=== PATIENT | female | born 1980 | race American Indian/Alaskan Native ===

== ENCOUNTER 2016-05-27 12:10 | Inpatient (IN) | payer MEDICARE ==
--- NOTE | 2016-05-27 12:50 | Emergency Department Report ---
Chief Complaint: Dizziness Stated Complaint: PAIN IN BOTH SHOULDERS Time Seen by Provider: 05/27/16 12:42 - HPI History of Present Illness: 36-year-old female with end-stage renal disease. Patient reports that she does home dialysis 5 times a week. Patient reports the last few days she's not been able to gather access to her shot. She reported yesterday when she tried to stick herself blood shot out from another opening of her shunt. She reports that this appears to be not functioning as it should places her cell phone machine and does not clear her. She was sent here by her doctor, Dr. Tatum and vascular to be evaluated. Patient reports that she has been having more dizziness when she gets on the machine she reported that her blood pressure was 85/69 which she placed herself on the machine yesterday. At that time she was complaining of heart with racing dizziness nausea and vomiting. Patient denies any fever or chills at this time. - Exam Vital Signs: Vital Signs 05/27/16 12:14 Temperature 98.3 F Pulse Rate 130 H Blood Pressure 143/111 O2 Sat by Pulse 98 Oximetry Physical Exam: Patient's alert and oriented 3. Cardiovascular S1-S2 tachycardic respiratory clear to auscultation extremities no edema noted. Noted a right upper arm shunt. MSE screening note: Focused history and physical exam performed. Due to findings the following was ordered: CBC CMP PT PTT and ultrasound of her right upper extremity to be evaluated in the main ER ED Disposition for MSE Condition: Stable
[2016-05-27 13:29] LABS: Basophils % (Auto) 1.1 % (0.0-1.8); Eosinophils % (Auto) 1.6 % (0.0-4.3); Hematocrit 47.7 % (30.3-42.9); Hemoglobin 15.1 gm/dl (10.1-14.3); Mean Corpuscular HGB Conc 32 % (30-34); Mean Corpuscular Hemoglobin 34 pg (28-32); Mean Corpuscular Volume 107 fl (79-97); Platelet Count 229 K/mm3 (140-440); Red Blood Count 4.47 M/mm3 (3.65-5.03); Red Cell Distribution Width 17.3 % (13.2-15.2)
[2016-05-27 13:43] LABS: INR 1.08 (0.87-1.13)
[2016-05-27 13:44] LABS: Partial Thromboplastin Time 25.8 Sec. (24.2-36.6)
[2016-05-27 13:45] LABS: BUN/Creatinine Ratio 3.09; Bilirubin,Total 0.5 mg/dL (0.1-1.2); Calcium 9.4 mg/dL (8.4-10.2); Potassium 4.6 mmol/L (3.6-5.0); Total Protein 8.1 g/dL (6.3-8.2)
[2016-05-27 13:46] LABS: Chloride 92.4 mmol/L (98-107)
--- NOTE | 2016-05-27 17:22 | Vascular Lab Report ---
FISTULA DUPLEX EXAM: REASON FOR EXAM: AVF malfunction with ESRD. NOTE: THE FISTULA IS LOCATED IN THE right UPPER EXTREMITY. COMMENTS ON THE FISTULA: This is a brachial artery inflow to cephalic vein outlflow fistula. Morphologicaly, there is no large pseudoaneurysms. There is no velocity gradient to suggest focal stenosis. COMMENTS ON THE INFLOW: The inflow velocity is 144 cm/s which is adequate. The brachial artery is 308 cm/sec which is elevated. COMMENTS ON THE OUTFLOW: The venous outflow is 84 cm/s which is low. The volume is 708-1093 mL per minute mL/min which is adequate. IMPRESSION: No evidence of focal stenosis. The volume passing through the fistula is adequate. Low velocity observed in the fistula may result from brachial artery stenosis elevated velocity. Clinical correlation recommended.
[2016-05-27] MEDS ORDERED: NACL 0.9% 500 ML 500 ML IV ONE (19:15)
--- NOTE | 2016-05-27 19:30 | Emergency Department Report ---
ED General Adult HPI - General Chief complaint: Dizziness Stated complaint: PAIN IN BOTH SHOULDERS Time Seen by Provider: 05/27/16 12:42 Source: patient Mode of arrival: Wheelchair Limitations: No Limitations - History of Present Illness Initial comments: Patient is a 36-year-old female with history of end-stage renal disease on hemodialysis at home as well as SLE presented today because she was found to have a low BP of 85/79 and a heart rate of [address] Tatum ( vascular doctor). Patient here has a heart rate of 20 and a blood pressure 118/ 68. She states that she's been having a heart rate and blood pressure abnormalities such as this for over a month and she is seen her primary doctor who has ordered an outpatient CTA. CTA results are in the computer and show small effusions but no PE. She states she's also had a cough the last 2 months been improving. Denies any other specific complaints. - Related Data Home Medications Medication Instructions Recorded Confirmed Last Taken Cinacalcet [Sensipar] 30 mg PO QDAY 11/12/14 05/27/16 04/13/15 Cyclobenzaprine HCl [Flexeril 5 MG 10 mg PO TID 11/12/14 05/27/16 04/13/15 TAB] Sevelamer Carbonate [Renvela] 4 tab PO TIDWM 04/14/15 05/27/16 04/13/15 Hydroxychloroquine [Plaquenil] 100 mg PO QDAY 05/27/16 05/27/16 Unknown fentaNYL [Duragesic 12mcg] 1 each TD Q72HR 05/27/16 05/27/16 Unknown Allergies Allergy/AdvReac Type Severity Reaction Status Date / Time Penicillins Allergy Itching Verified 04/14/15 15:34 ED Review of Systems ROS: Stated complaint: PAIN IN BOTH SHOULDERS Other details as noted in HPI Comment: All other systems reviewed and negative Constitutional: denies: diaphoresis, weakness Respiratory: cough, SOB with exertion, SOB at rest Cardiovascular: denies: chest pain Gastrointestinal: denies: abdominal pain, vomiting Skin: denies: rash Neurological: denies: headache Psychiatric: denies: anxiety ED Past Medical Hx - Past Medical History Hx Hypertension: (states no longer needs/takes meds) Hx Congestive Heart Failure: No Hx Diabetes: No Hx Liver Disease: No Hx Renal Disease: Yes (DIALYSIS DAILY at home) Hx Sickle Cell Disease: No Hx Arthritis: Yes Hx Seizures: No Hx Asthma: No Hx COPD: No Hx HIV: No Additional medical history: lupus - Surgical History Hx Open Heart Surgery: Yes (mitral valve replacement) Hx Pacemaker: No Hx Internal Defibrillator: No Additional Surgical History: Tubal ligation. Permacath RIGHT CHEST(REMOVED 07/01 ) - Social History Smoking Status: Never Smoker Substance Use Type: None - Medications Home Medications: Home Medications Medication Instructions Recorded Confirmed Last Taken Type Cinacalcet [Sensipar] 30 mg PO QDAY 11/12/14 05/27/16 04/13/15 History Cyclobenzaprine HCl [Flexeril 5 MG 10 mg PO TID 11/12/14 05/27/16 04/13/15 History TAB] Sevelamer Carbonate [Renvela] 4 tab PO TIDWM 04/14/15 05/27/16 04/13/15 History Hydroxychloroquine [Plaquenil] 100 mg PO QDAY 05/27/16 05/27/16 Unknown History fentaNYL [Duragesic 12mcg] 1 each TD Q72HR 05/27/16 05/27/16 Unknown History ED Physical Exam - General Limitations: No Limitations General appearance: alert, in no apparent distress - Head Head exam: Present: atraumatic - Eye Eye exam: Present: normal appearance - ENT ENT exam: Present: normal exam - Respiratory Respiratory exam: Present: normal lung sounds bilaterally, other (limited exam due to body habitus). Absent: respiratory distress - Cardiovascular Cardiovascular Exam: Present: normal heart sounds, other (regular rhythm tachycardic) - GI/Abdominal GI/Abdominal exam: Present: soft - Extremities Exam Extremities exam: Present: normal capillary refill, other (right upper extremity fistula with palpable and audible thrill) - Psychiatric Psychiatric exam: Present: normal affect - Skin Skin exam: Absent: rash ED Course Vital Signs 05/27/16 05/27/16 05/27/16 12:14 17:03 17:12 Temperature 98.3 F Pulse Rate 130 H 109 H Respiratory 24 23 Rate Blood Pressure 143/111 O2 Sat by Pulse 98 98 Oximetry 05/27/16 05/27/16 05/27/16 18:00 19:00 20:00 Temperature Pulse Rate 120 H 118 H 120 H Respiratory 19 19 15 Rate Blood Pressure 100/52 114/69 96/59 O2 Sat by Pulse 97 98 100 Oximetry 05/27/16 05/27/16 21:00 22:00 Temperature Pulse Rate 120 H 122 H Respiratory 31 H 17 Rate Blood Pressure 105/60 105/56 O2 Sat by Pulse 99 99 Oximetry ED Medical Decision Making - Lab Data Result diagrams: 05/27/16 13:05 05/27/16 13:05 - EKG Data EKG shows normal: sinus rhythm Rate: tachycardia - EKG Data When compared to previous EKG there are: no significant change - Medical Decision Making She was found to have a exam is mostly remarkable for a explained tachycardia. She has been having a cough which is not clearly explained by any reason. Chest x-ray and EKG ordered. Chest x-ray shows left heart border is not clear on my prior chest x-ray, she may represent a new infiltrate. Labs also show leukocytosis. In the setting of her having cough, shortness of breath and tachycardia will have to assume that this is due to pneumonia. Will order HCAP abx. Indigo to admit the patient given her multiple comorbidities and her abnormal vital signs tachycardia as well as harry has difficulty in completing dialysis at home. Spoke to Dr. Darlyn Modi, Hospitalist, will admit the patient. Critical care attestation.: If time is entered above; I have spent that time in minutes in the direct care of this critically ill patient, excluding procedure time. ED Disposition Clinical Impression: Pneumonia Qualifiers: Pneumonia type: due to unspecified organism Laterality: left Lung location: lower lobe of lung Qualified Code(s): J18.9 - Pneumonia, unspecified organism Disposition: OP ADMITTED IP TO THIS HOSP Is pt being admited?: Yes Does the pt Need Aspirin: No Condition: Stable Time of Disposition: 21:24 (Hospitalist admitting)
[2016-05-27] MEDS ORDERED: VANCOMYCIN VIAL IV ONE (20:12)
[2016-05-27] MEDS ORDERED: VANCOMYCIN PHARMACY TO DOSE IV SCH (21:00)
[2016-05-27] MEDS ORDERED: VANCOMYCIN VIAL 2,000 MG in NACL 0.9% 500 ML 500 ML IV ONE (21:00)
[2016-05-27] MEDS ORDERED: MAXIPIME/NS 2 GM/100 ML 100 ML IV ONE (22:00)
--- NOTE | 2016-05-27 22:11 | XRay Report ---
FINAL REPORT EXAM: XR CHEST 1V AP HISTORY: tachycardic TECHNIQUE: upright single view chest PRIORS: None. FINDINGS: Sternotomy wires are present. There is cardiac valve prosthesis. Left heart border is indistinct. No focal pulmonary infiltrate is identified. No pleural fluid collection seen. Pulmonary vasculature is unremarkable. IMPRESSION: Evidence for prior cardiac surgery with valve prosthesis No acute pulmonary findings
--- NOTE | 2016-05-27 22:39 | History and Physical Report ---
History of Present Illness Date of examination: 05/27/16 History of present illness: 36 year woman with history of lupus, ESRD, valve placement, anemia was sent to the emergency room for evaluation of tachycardia. She also states that her blood pressure was 85 systolically. She states she has been having palpitations for 2 months, she was evaluated by cardiology. She has a CT chest which was negative for PE, an echo was done, she does not know the results. Palpitations are intermittent, every 5 minutes. Today she felt dizzy and nauseous. No chest pain Patient denies chest pain, shortness of breath, cough, abdominal pain, hematochezia, dysuria, frequency, focal weakness, dysarthria, fever chills, polydipsia polyuria, hot or cold intolerance, easy bruisability, or rash or bleeding from mucosal membrane, rhinorrhea, epistaxis, earache, tinnitus, blurry vision, eye discharge, anxiety, depression. Other review of systems negative PAST SURGICAL HISTORY: AV fistula, tubal ligation, however placement SOCIAL HISTORY: Denies alcohol, tobacco, drugs FAMILY HISTORY: Hypertension Medications and Allergies Allergies Allergy/AdvReac Type Severity Reaction Status Date / Time Penicillins Allergy Itching Verified 04/14/15 15:34 Home Medications Medication Instructions Recorded Confirmed Last Taken Type Cinacalcet [Sensipar] 30 mg PO QDAY 11/12/14 05/27/16 04/13/15 History Cyclobenzaprine HCl [Flexeril 5 MG 10 mg PO TID 11/12/14 05/27/16 04/13/15 History TAB] Sevelamer Carbonate [Renvela] 4 tab PO TIDWM 04/14/15 05/27/16 04/13/15 History Hydroxychloroquine [Plaquenil] 100 mg PO QDAY 05/27/16 05/27/16 Unknown History fentaNYL [Duragesic 12mcg] 1 each TD Q72HR 05/27/16 05/27/16 Unknown History Active Meds: Active Medications Vancomycin HCl 2,000 mg/ (Sodium Chloride) 500 mls @ 250 mls/hr IV ONCE.ED ONE Stop: 05/27/16 22:59 Vancomycin HCl (Vancomycin Pharmacy To Dose) 1 each IV PKCONSULT SHAYLA PRN Reason: Protocol Exam - Physical Exam Narrative exam: Gen. appearance: Patient lying in bed, no apparent distress HEENT: Normocephalic, atraumatic, pupils equally round and reactive to light, extraocular movement intact, and no sclericterus,. No JVD or thyromegaly or nodule,neck supple, no carotid bruit ,mucous membranes moist, no exudate or erythema Heart: S1, S2, regular rate and rhythm Lungs: Clear to auscultation bilaterally, breathing comfortable Abdomen: Positive bowel sounds, nontender, nondistended, no organomegaly Extremity: No edema, cyanosis, clubbing Skin: No rash, nodules, warm, dry Neuro: Oriented 3, cranial nerves II-12 intact, speech is fluent, motor and sensory intact - Constitutional Vitals: Temp Pulse Resp BP Pulse Ox 98.3 F 122 H 17 105/56 99 05/27/16 12:14 05/27/16 22:00 05/27/16 22:00 05/27/16 22:00 05/27/16 22:00 Results - Labs CBC & Chem 7: 05/27/16 13:05 05/27/16 13:05 Labs: Abnormal lab results 05/27/16 05/27/16 05/27/16 Range/Units 13:05 13:05 19:51 WBC 12.0 H (4.5-11.0) K/mm3 Hgb 15.1 H (10.1-14.3) gm/dl Hct 47.7 H (30.3-42.9) % MCV 107 H (79-97) fl MCH 34 H (28-32) pg RDW 17.3 H (13.2-15.2) % Lymph % (Auto) 10.0 L (13.4-35.0) % Seg Neutrophils % 80.7 H (40.0-70.0) % Seg Neutrophils # 9.7 H (1.8-7.7) K/mm3 Chloride 92.4 L (98-107) mmol/L BUN 43 H (7-17) mg/dL Creatinine 13.9 H (0.7-1.2) mg/dL Glucose 133 H (65-100) mg/dL TSH 7.820 H (0.270-4.200) mlU/mL - Imaging and Cardiology EKG: image reviewed Chest x-ray: report reviewed Assessment and Plan Palpitations/Tachycardia ESRD on dialysis Lupus H/o Valve replacement Admit to medicine Check cardiac enzymes, d-dimer Consult cardiology, get recent echo report Start IV fluid, dvt prophalaxis, out patient medications No signs of infection, s/p antibiotic with vanco and cefipime CT chest reviewed from May 14
[2016-05-27] MEDS ORDERED: NACL 0.9% 1000 ML 1,000 ML IV SCH (23:00)
[2016-05-27] MEDS ORDERED: DULCOLAX PR PRN (23:03)
[2016-05-27] MEDS ORDERED: ZOFRAN IV PRN (23:03)
[2016-05-27] MEDS ORDERED: TYLENOL PO PRN (23:03)
[2016-05-27] MEDS ORDERED: MILK OF MAGNESIA PO PRN (23:03)
[2016-05-28 00:28] LABS: Creatine Kinase 57 units/L (30-135)
[2016-05-28 00:35] LABS: Creatine Kinase MB < 1.0 ng/mL (0.0-4.0)
--- NOTE | 2016-05-28 01:04 | Admit Criteria Form ---
Admission Criteria Documentation: CARDIOLOGY GRG Clinical Indications for Admission to Inpatient Care ( Place 'X' for any and all applicable criteria): Hospital admission is needed for appropriate care of the patient because of ANY ONE of the following (1): [ ] I. Hemodynamic instability as indicated by ALL of the following (1)(2)(3) (4)(5) [ ]a) Vital signs or other findings not as expected for chronic patient condition or baseline [ ]b) Instability indicated by ANY ONE of the following: [ ]i) Hypotension [ ]ii) Symptomatic Tachycardia unresponsive to treatment ( e.g., analgesia, fluids, sedation as indicated) [ ]iii) Inadequate perfusion indicated by ANY ONE of the following: [ ] 1) Lactic acidosis (> 2 mmol/L) [ ] 2) New abnormal capillary refill (> 3 seconds) [ ] 3) Reduced urine output [ ] 4) New altered mental status [ ]iv) Orthostatic vital sign changes unresponsive to treatment (e.g., fluids) [ ]v) IV inotropic or vasopressor medication required to maintain adequate blood pressure or perfusion [ ] II. Severe heart failure as indicated by ANY ONE of the following(17)(18) [ ]a) Respiratory distress [ ]b) Hypotension [ ]c) Anasarca (refractory to outpatient therapy) [ ]d) Cardiac arrhythmias of immediate concern [ ]e) Myocardial ischemia [ ] III. Cardiac arrhythmias or findings of immediate concern indicated by ANY ONE of the following (19)(20): [ ] a) Heart rhythms that are inherently dangerous or unstable indicated by ANY ONE of the following (21)(22)(23): [ ] i) Resuscitated ventricular fibrillation or cardiac arrest [ ] ii) Ventricular escape rhythm [ ] iii) Sustained ventricular tachycardia (30 seconds or more of ventricular rhythm at greater than 100 beats per minute) [ ] iv) Nonsustained ventricular tachycardia and ANY ONE of the following: [ ] 1) Suspected cardiac ischemia as cause or consequence of ventricular tachycardia [ ] 2) In setting of acute myocarditis [ ] b) Unstable cardiac conduction defects indicated by ANY ONE of the following(23)(24)(25) [ ] i) Type II second-degree atrioventricular block [ ]ii) Third-degree atrioventricular block [ ]iii) New-onset left bundle branch block with suspected myocardial ischemia [ ]c) Any heart rhythm and ANY ONE of the following (21)(22)(26)(27) (28) [ ] i) Continuous long-term ECG monitoring needed (e.g., initiation of drug requiring monitoring for more than 24 hours) [ ] ii) Patient has automatic implanted cardioverter defibrillator that is repeatedly firing, malfunctioning, or in need of immediate adjustment of settings beyond the scope of ambulatory or observation care [ ]d) Heart rhythms of concern due to ANY ONE of the following: [ ] i) Hypotension [ ] ii) Respiratory distress [ ] iii) Association with other significant symptoms (e.g., bradycardia with syncope or ongoing dizziness, supraventricular tachycardia with chest pain (14)(15)(17) [ ] IV. Monitoring for cardiac contusion beyond the scope of observation care needed [A](30)(31)(32) [ ] V. Surgical or device complication (e.g., valve replacement complication , pacemaker dysfunction) (35)(41)(44)(45)(46) [ ] . Inpatient palliative care needed. [B](49) Also use Inpatient Palliative Care Criteria [ ] VII. Nonbacterial thrombotic (marantic) endocarditis (36)(43)(47)(48) [X ] VIII. Cardiology condition, symptom, or finding for which emergency and observation care has failed or are not considered appropriate. [ ] IX. Acute valvular disease requiring inpatient as indicated by ANY ONE of the following (41) [ ]a) Acute valvular regurgitation (42) [ ]b) Noninfectious valvulitis (43) [ ]c) Obstructive valve thrombosis [ ]d) Paravalvular leak [ ]e) Other significant valvular disorder remaining after emergency or observation level of care (as appropriate) [ ]X. Pericardial disease requiring inpatient treatment as indicated by ANY ONE of the following (33)(34)(35)(36)(37) [ ]a) Suspected tamponade (38)(39)(40) [ ]b) Hemopericardium [ ]c) Other significant pericardial disorder remaining after emergency or observation level of care (as appropriate) [ ] XI. Cardiac ischemia beyond scope of emergency and observation care. [ ] XII. Hypertension requiring inpatient treatment as indicated by ANY ONE of the following (6)(7)(8) [ ]a) SBP greater than 220 mm Hg or DBP greater than 120 mmHg despite treatment [ ]b) SBP greater than 140 mm Hg or DBP greater than 100 mm Hg with evidence of acute end organ damage as indicated by ANY ONE of the following [ ] i) Altered mental status [ ] ii) Acute renal failure as indicated by new onset of ANY ONE of the following (9)(10)(11)(12)(13) [ ]1) 3-fold rise in serum creatinine from baseline [ ]2) Serum creatinine greater than 4 mg/dL ( 354 micromoles/L) with acute rise greater than 0.5 mg/dL (44.2 micromoles/L) [ ]3) Reduction of more than 75% in estimated glomerular filtration rate from baseline [ ]4) Estimated glomerular filtration rate less than 35 mL/min/1.73m2 (0.59 mL/sec/1.73m2) in child up to 18 years of age [ ]5) Cessation of urine output indicated by ALL of the following [ ]A. Adequate volume status [ ]B. Inadequate urine output as indicated by ANY ONE of the following [ ]a. Urine output less than 0.3 mL/kg/hr for 24 hours [ ]b. Anuria (urine output less than 0.1 mL/kg/hr) for 12 hours [ ] iii) Aortic dissection [ ] iv) Myocardial Ischemia [ ] v) Left ventricular heart failure [ ]vi) Retinal Hemorrhage [ ]vii) Other significant finding [ ]c) Hypertension in child requiring inpatient treatment as indicated by ALL of the following(14)(15)(16) [ ] i) Outpatient treatment not effective, not available, or not appropriate [ ]ii) SBP or DBP greater than 95th percentile for age [ ]iii) Evidence of acute end organ damage as indicated by ANY ONE of the following [ ]1) Altered mental status [ ]2) Acute renal failure as indicated by new onset of ANY ONE of the following(9)(10)(11)(12)(13) [ ]A. 3-fold rise in serum creatinine from baseline [ ]B. Serum creatinine greater than 4 mg/dL (354 micromoles/L) with acute rise greater than 0.5 mg/dL (44.2 micromoles/L) [ ]C. Reduction of more than 75% in estimated glomerular filtration rate from baseline [ ]D. Estimated glomerular filtration rate less than 35 mL/min/1.73m2 (0.59 mL/sec/1.73m2) in child up to 18 years of age [ ]E. Cessation of urine output indicated by ALL of the following [ ]a. Adequate volume status [ ]b. Inadequate urine output as indicated by ANY ONE of the following [ ]i) Urine output less than 0.3 mL/kg/hr for 24 hours [ ]ii) Anuria ( urine output less than 0.1 mL/kg/hr) for 12 hours [ ]3) Severe headache [ ]4) Visual disturbance [ ]5) Retinal hemorrhage [ ]6) Other significant finding [ ]XIII. Complications of transplanted heart indicated by ANY ONE of the following(61): [ ]a) Acute graft rejection requiring inpatient management (eg, intravenous immunosuppression)(62)(63) [ ]b) Acute graft heart failure indicated by ANY ONE of the following(64): [ ]i) Hemodynamic instability [ ]ii) Cardiac arrhythmias of immediate concern [ ]iii) Pulmonary edema that is very severe (eg, mechanical ventilation needed, imminent or likely, need for 100% oxygen to keep oxygen saturation above 90%) [ ]iv) Pulmonary edema that is persistent as indicated by ALL of the following: [ ]1) New need for oxygen therapy to keep oxygen saturation above 90% (or increased FiO2 need from baseline) [ ]2) Has not improved sufficiently with emergency department or observation care IV diuretics or other heart failure treatments[E] [ ]v) Altered mental status that is severe or persistent [ ]vi) Increased creatinine (new on laboratory test) with reduction of more than 50% in estimated glomerular filtration rate from baseline [ ]vii) Progressively (ongoing) rising creatinine (known from past laboratory test) with reduction of more than 25% in estimated glomerular filtration rate from baseline [ ]viii) Acute renal failure [ ]ix) Acute peripheral ischemia (eg, examination shows pulseless, cool, mottled, or cyanotic extremity) [ ]x) Pulmonary artery catheter monitoring needed [ ]xi) Other sign or symptom of heart failure requiring inpatient treatment (ie, too severe or not responsive to outpatient and observation care treatment) [ ]c) Infection requiring inpatient management (eg, Hemodynamic instability, need for intravenous antimicrobial treatment)(66)(67)(68)(69)(70) [ ]d) Cardiac allograft vasculopathy requiring inpatient management ( eg evidence of cardiac ischemia)(71) [ ]e) Other complication of transplanted heart (eg, stroke, severe pulmonary hypertension, severe valvular dysfunction) requiring inpatient management(72) The original [facility] [employer] content created by [facility] has been revised. The portions of the content which have been revised are identified through the use of italic text or in bold, and [facility] has neither reviewed nor approved the modified material. All other unmodified content is copyright [facility] [employer]. Please see references footnoted in the original [facility] [employer] edition 2016 Admission Criteria Met: Yes
[2016-05-28 01:18] LABS: Cholesterol 139 mg/dL (50-199); HDL Cholesterol 44 mg/dL (40-59); LDL Cholesterol,Direct 58 mg/dL (50-130); Triglycerides 185 mg/dL (2-149)
[2016-05-28 05:46] LABS: Basophils % (Auto) 1.2 % (0.0-1.8); Eosinophils % (Auto) 2.9 % (0.0-4.3); Hemoglobin 14.2 gm/dl (10.1-14.3); Mean Corpuscular HGB Conc 32 % (30-34); Mean Corpuscular Hemoglobin 34 pg (28-32); Mean Corpuscular Volume 107 fl (79-97); Platelet Count 197 K/mm3 (140-440); Red Blood Count 4.11 M/mm3 (3.65-5.03); Red Cell Distribution Width 17.7 % (13.2-15.2); White Blood Count 10.9 K/mm3 (4.5-11.0)
[2016-05-28] MEDS ORDERED: BENADRYL PO PRN (05:46)
[2016-05-28 06:01] LABS: BUN/Creatinine Ratio 3.12; Calcium 9.1 mg/dL (8.4-10.2); Chloride 93.9 mmol/L (98-107); Potassium 4.8 mmol/L (3.6-5.0)
[2016-05-28 06:08] LABS: Creatine Kinase 53 units/L (30-135); Creatine Kinase MB < 1.0 ng/mL (0.0-4.0)
--- NOTE | 2016-05-28 09:05 | Progress Note ---
Assessment and Plan Assessment and plan: 1. Palpitations Echo, cardiology consult, monitor on Telemetry 2. ESRD HD per renal 3. SLE continue chronic meds, not in exacerbation 4. Hx of valve replacement continue anti-coagulation Hospitalist Physical - Constitutional Vitals: Temp Pulse Resp BP Pulse Ox 97.6 F 108 H 18 81/44 100 05/28/16 08:32 05/28/16 08:32 05/28/16 08:32 05/28/16 08:32 05/28/16 08:32 Results - Labs CBC & Chem 7: 05/28/16 04:54 05/28/16 04:54 Labs: Laboratory Last Values WBC 10.9 K/mm3 (4.5-11.0) 05/28/16 04:54 RBC 4.11 M/mm3 (3.65-5.03) 05/28/16 04:54 Hgb 14.2 gm/dl (10.1-14.3) 05/28/16 04:54 Hct 44.0 % (30.3-42.9) H 05/28/16 04:54 MCV 107 fl (79-97) H 05/28/16 04:54 MCH 34 pg (28-32) H 05/28/16 04:54 MCHC 32 % (30-34) 05/28/16 04:54 RDW 17.7 % (13.2-15.2) H 05/28/16 04:54 Plt Count 197 K/mm3 (140-440) 05/28/16 04:54 Lymph % (Auto) 15.6 % (13.4-35.0) 05/28/16 04:54 Piute % (Auto) 8.3 % (0.0-7.3) H 05/28/16 04:54 Eos % (Auto) 2.9 % (0.0-4.3) 05/28/16 04:54 Baso % (Auto) 1.2 % (0.0-1.8) 05/28/16 04:54 Lymph # 1.7 K/mm3 (1.2-5.4) 05/28/16 04:54 Piute # 0.9 K/mm3 (0.0-0.8) H 05/28/16 04:54 Eos # 0.3 K/mm3 (0.0-0.4) 05/28/16 04:54 Baso # 0.1 K/mm3 (0.0-0.1) 05/28/16 04:54 Seg Neutrophils % 72.0 % (40.0-70.0) H 05/28/16 04:54 Seg Neutrophils # 7.8 K/mm3 (1.8-7.7) H 05/28/16 04:54 PT 13.9 Sec. (12.2-14.9) 05/27/16 13:05 INR 1.08 (0.87-1.13) 05/27/16 13:05 APTT 25.8 Sec. (24.2-36.6) 05/27/16 13:05 Sodium 139 mmol/L (137-145) 05/28/16 04:54 Potassium 4.8 mmol/L (3.6-5.0) 05/28/16 04:54 Chloride 93.9 mmol/L (98-107) L 05/28/16 04:54 Carbon Dioxide 22 mmol/L (22-30) 05/28/16 04:54 Anion Gap 28 mmol/L 05/28/16 04:54 BUN 50 mg/dL (7-17) H 05/28/16 04:54 Creatinine 16.0 mg/dL (0.7-1.2) H 05/28/16 04:54 Estimated GFR 3 ml/min 05/28/16 04:54 BUN/Creatinine Ratio 3.12 % 05/28/16 04:54 Glucose 92 mg/dL (65-100) 05/28/16 04:54 Calcium 9.1 mg/dL (8.4-10.2) 05/28/16 04:54 Total Bilirubin 0.5 mg/dL (0.1-1.2) 05/27/16 13:05 AST 16 units/L (5-40) 05/27/16 13:05 ALT 10 units/L (7-56) 05/27/16 13:05 Alkaline Phosphatase 77 units/L (35-129) 05/27/16 13:05 Total Creatine Kinase 53 units/L (30-135) 05/28/16 04:54 CK-MB (CK-2) < 1.0 ng/mL (0.0-4.0) 05/28/16 04:54 CK-MB (CK-2) Rel Index 1.8 (0-4) 05/28/16 04:54 Troponin T 0.031 ng/mL (0.00-0.029) H D 05/28/16 04:54 Total Protein 8.1 g/dL (6.3-8.2) 05/27/16 13:05 Albumin 4.0 g/dL (3.9-5) 05/27/16 13:05 Albumin/Globulin Ratio 1.0 % 05/27/16 13:05 Triglycerides 185 mg/dL (2-149) H 05/27/16 23:45 Cholesterol 139 mg/dL (50-199) 05/27/16 23:45 LDL Cholesterol Direct 58 mg/dL (50-130) 05/27/16 23:45 HDL Cholesterol 44 mg/dL (40-59) 05/27/16 23:45 Cholesterol/HDL Ratio 3.15 % 05/27/16 23:45 TSH 7.820 mlU/mL (0.270-4.200) H 05/27/16 19:51
--- NOTE | 2016-05-28 09:46 | Consultation ---
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 Tatum' s ([facility] vascular) office yesterday and was found to have a BP of 85/79 and and HR of 135. She was referred to the ER for further evaluation. She reports a two month history of palpitations, tachycardia and low blood pressure. She denies any chest pain or significant shortness of breath. Echo done in our office on 05/19/16 showed EF 50%, LA severely dilated, severe MV stenosis (peak gradient 35, mean 20), moderate AR, grade 2 diastolic dysfunction. Past History Past Medical History: dialysis, ESRD, hypertension, other (lupus, MVR for endocarditis (2013)) Past Surgical History: Other (bioprosthetic MVR for endocarditis (2013), multiple vascular access prodecures, PD catheter placement and removal ) Social history: denies: smoking, alcohol abuse, prescription drug abuse, IV drug use Family history: no significant family history Medications and Allergies Allergies Allergy/AdvReac Type Severity Reaction Status Date / Time Penicillins Allergy Itching Verified 04/14/15 15:34 Home Medications Medication Instructions Recorded Confirmed Last Taken Type Cinacalcet [Sensipar] 30 mg PO QDAY 11/12/14 05/27/16 04/13/15 History Cyclobenzaprine HCl [Flexeril 5 MG 10 mg PO TID 11/12/14 05/27/16 04/13/15 History TAB] Sevelamer Carbonate [Renvela] 4 tab PO TIDWM 04/14/15 05/27/16 04/13/15 History Hydroxychloroquine [Plaquenil] 100 mg PO QDAY 05/27/16 05/27/16 Unknown History fentaNYL [Duragesic 12mcg] 1 each TD Q72HR 05/27/16 05/27/16 Unknown History Active Meds: Active Medications Acetaminophen (Tylenol) 650 mg PO Q4H PRN PRN Reason: Pain MILD(1-3)/Fever >100.5/MAURER Last Admin: 05/28/16 05:53 Dose: 650 mg Bisacodyl (Dulcolax) 10 mg NV QDAY PRN PRN Reason: Constipation unrelieved by MOM Diphenhydramine HCl (Benadryl) 25 mg PO Q6H PRN PRN Reason: Itching Last Admin: 05/28/16 05:53 Dose: 25 mg Enoxaparin Sodium (Lovenox) 30 mg SUB-Q QDAY SHAYLA Sodium Chloride (Nacl 0.9% 1000 Ml) 1,000 mls @ 100 mls/hr IV DIRECT SHAYLA Magnesium Hydroxide (Milk Of Magnesia) 30 ml PO Q4H PRN PRN Reason: Constipation Ondansetron HCl (Zofran) 4 mg IV Q8H PRN PRN Reason: N/V unrelieved by Reglan Review of Systems Constitutional: no fever, no chills Ears, nose, mouth and throat: no nasal congestion, no nasal discharge, no sinus pressure Cardiovascular: palpitations, dyspnea on exertion, no chest pain, no shortness of breath Respiratory: no cough, no shortness of breath, no congestion, no wheezing Gastrointestinal: no abdominal pain, no nausea, no vomiting, no diarrhea Genitourinary Female: no dysuria, no urgency Musculoskeletal: no neck stiffness, no neck pain, no myalgias Integumentary: no rash, no pruritis Neurological: no weakness, no parathesias, no numbness, no tingling, no headaches Hematologic/Lymphatic: no easy bruising, no easy bleeding Allergic/Immunologic: no urticaria, no wheezing Physical Examination Vital Signs Temp Pulse BP Pulse Ox 98.3 F 130 H 143/111 98 05/27/16 12:14 05/27/16 12:14 05/27/16 12:14 05/27/16 12:14 General appearance: no acute distress, obese HEENT: Positive: PERRL, Normocephaly, Mucus Membranes Moist Neck: Positive: neck supple, trachea midline Cardiac: Positive: Reg Rate and Rhythm, S1/S2, Systolic Murmur Lungs: Positive: clear to auscultation Neuro: Positive: Grossly Intact Abdomen: Positive: Soft, Active Bowel Sounds. Negative: Tender Skin: Positive: Clear. Negative: Rash Extremities: Present: normal. Absent: edema Results 05/28/16 04:54 05/28/16 04:54 Cardiac Enzymes 05/27/16 05/28/16 05/28/16 Range/Units 23:45 04:54 04:54 WBC 10.9 (4.5-11.0) K/mm3 RBC 4.11 (3.65-5.03) M/mm3 Hgb 14.2 (10.1-14.3) gm/dl Hct 44.0 H (30.3-42.9) % MCV 107 H (79-97) fl MCH 34 H (28-32) pg MCHC 32 (30-34) % RDW 17.7 H (13.2-15.2) % Plt Count 197 (140-440) K/mm3 Lymph % (Auto) 15.6 (13.4-35.0) % Mccreary % (Auto) 8.3 H (0.0-7.3) % Eos % (Auto) 2.9 (0.0-4.3) % Baso % (Auto) 1.2 (0.0-1.8) % Lymph # 1.7 (1.2-5.4) K/mm3 Mccreary # 0.9 H (0.0-0.8) K/mm3 Eos # 0.3 (0.0-0.4) K/mm3 Baso # 0.1 (0.0-0.1) K/mm3 Seg Neutrophils % 72.0 H (40.0-70.0) % Seg Neutrophils # 7.8 H (1.8-7.7) K/mm3 Sodium 139 (137-145) mmol/L Potassium 4.8 (3.6-5.0) mmol/L Chloride 93.9 L (98-107) mmol/L Carbon Dioxide 22 (22-30) mmol/L Anion Gap 28 mmol/L BUN 50 H (7-17) mg/dL Creatinine 16.0 H (0.7-1.2) mg/dL Estimated GFR 3 ml/min BUN/Creatinine Ratio 3.12 % Glucose 92 (65-100) mg/dL Calcium 9.1 (8.4-10.2) mg/dL Total Creatine Kinase 57 (30-135) units/L CK-MB (CK-2) < 1.0 (0.0-4.0) ng/mL CK-MB (CK-2) Rel Index 1.7 (0-4) Troponin T 0.040 H D (0.00-0.029) ng/mL Triglycerides 185 H (2-149) mg/dL Cholesterol 139 (50-199) mg/dL LDL Cholesterol Direct 58 (50-130) mg/dL HDL Cholesterol 44 (40-59) mg/dL Cholesterol/HDL Ratio 3.15 % 05/28/16 Range/Units 04:54 WBC (4.5-11.0) K/mm3 RBC (3.65-5.03) M/mm3 Hgb (10.1-14.3) gm/dl Hct (30.3-42.9) % MCV (79-97) fl MCH (28-32) pg MCHC (30-34) % RDW (13.2-15.2) % Plt Count (140-440) K/mm3 Lymph % (Auto) (13.4-35.0) % Mccreary % (Auto) (0.0-7.3) % Eos % (Auto) (0.0-4.3) % Baso % (Auto) (0.0-1.8) % Lymph # (1.2-5.4) K/mm3 Mccreary # (0.0-0.8) K/mm3 Eos # (0.0-0.4) K/mm3 Baso # (0.0-0.1) K/mm3 Seg Neutrophils % (40.0-70.0) % Seg Neutrophils # (1.8-7.7) K/mm3 Sodium (137-145) mmol/L Potassium (3.6-5.0) mmol/L Chloride (98-107) mmol/L Carbon Dioxide (22-30) mmol/L Anion Gap mmol/L BUN (7-17) mg/dL Creatinine (0.7-1.2) mg/dL Estimated GFR ml/min BUN/Creatinine Ratio % Glucose (65-100) mg/dL Calcium (8.4-10.2) mg/dL Total Creatine Kinase 53 (30-135) units/L CK-MB (CK-2) < 1.0 (0.0-4.0) ng/mL CK-MB (CK-2) Rel Index 1.8 (0-4) Troponin T 0.031 H D (0.00-0.029) ng/mL Triglycerides (2-149) mg/dL Cholesterol (50-199) mg/dL LDL Cholesterol Direct (50-130) mg/dL HDL Cholesterol (40-59) mg/dL Cholesterol/HDL Ratio % Lipids 05/27/16 Range/Units 23:45 Triglycerides 185 H (2-149) mg/dL Cholesterol 139 (50-199) mg/dL HDL Cholesterol 44 (40-59) mg/dL Cholesterol/HDL Ratio 3.15 % CBC 05/28/16 Range/Units 04:54 WBC 10.9 (4.5-11.0) K/mm3 RBC 4.11 (3.65-5.03) M/mm3 Hgb 14.2 (10.1-14.3) gm/dl Hct 44.0 H (30.3-42.9) % Plt Count 197 (140-440) K/mm3 Lymph # 1.7 (1.2-5.4) K/mm3 Mccreary # 0.9 H (0.0-0.8) K/mm3 Eos # 0.3 (0.0-0.4) K/mm3 Baso # 0.1 (0.0-0.1) K/mm3 Comprehensive Metabolic Panel 05/28/16 Range/Units 04:54 Sodium 139 (137-145) mmol/L Potassium 4.8 (3.6-5.0) mmol/L Chloride 93.9 L (98-107) mmol/L Carbon Dioxide 22 (22-30) mmol/L BUN 50 H (7-17) mg/dL Creatinine 16.0 H (0.7-1.2) mg/dL Glucose 92 (65-100) mg/dL Calcium 9.1 (8.4-10.2) mg/dL - Imaging and Cardiology Echo: report reviewed ( 05/19/16: EF 50%, LA severely dilated, severe MV stenosis (peak gradient 35, mean 20), moderate AR, grade 2 diastolic dysfunction) EKG: image reviewed EKG interpretations - Telemetry EKG Rhythm: Sinus Tachycardia - EKG Sinus rhythms and dysrhythmias: sinus tachycardia Assessment and Plan Severe mitral stenosis TTE 05/19/16: EF 50%, LA severely dilated, severe MV stenosis (peak gradient 35 , mean 20), moderate AR, grade 2 diastolic dysfunction-->await repeat SHELIA may be performed as an OP as pt. is clinically stable Sinus tachycardia Hypotension holding torprol/clonidine Hx. of bioprosthetic MVR (2013) for endocarditis ESRD on HD Lupus Await repeat TTE findings. If indicated, SHELIA may be performed as an outpatient as pt. is clinically stable at this point. The patient has been seen in conjunction with Dr. Sutherland who agrees with the assessment and plan of care. Thank you Dr. Modi for allowing us to participate in the care of this patient.
[2016-05-28] MEDS ORDERED: LOVENOX SUB-Q SCH (10:00)
[2016-05-28] MEDS ORDERED: NACL 0.9% 250ML 250 ML IV NR (10:04)
[2016-05-28] MEDS ORDERED: NACL 0.9% 1000 ML 100 ML IV PRN (11:43)
--- NOTE | 2016-05-28 13:33 | Consultation ---
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 Carly Tatum's ) office yesterday for evaluation of malfunctioning AVF, sent to the hospital after she was noted to have a BP of 85/79 and and HR of 135. She did not have any vascular procedure done yesterday. Her BP improved after bolus IVFS. We are consulted for management of her ESRD. Per cardio notes her Echo done on 05/19/16 showed that she has EF of 50%, severely dilated LA, severe MV stenosis (peak gradient 35, mean 20), moderate AR, grade 2 diastolic dysfunction. Repeat Echo in the hospital confirmed same. She denies SOB/CP at present. Past History Past Medical History: dialysis, ESRD, hypertension, other (lupus, MVR for endocarditis (2013)) Past Surgical History: Other (bioprosthetic MVR for endocarditis (2013), multiple vascular access prodecures, PD catheter placement and removal ) Social history: denies: smoking, alcohol abuse, prescription drug abuse, IV drug use Family history: no significant family history Medications and Allergies Allergies Allergy/AdvReac Type Severity Reaction Status Date / Time Penicillins Allergy Itching Verified 04/14/15 15:34 Home Medications Medication Instructions Recorded Confirmed Last Taken Type Cinacalcet [Sensipar] 30 mg PO QDAY 11/12/14 05/27/16 04/13/15 History Cyclobenzaprine HCl [Flexeril 5 MG 10 mg PO TID 11/12/14 05/27/16 04/13/15 History TAB] Sevelamer Carbonate [Renvela] 4 tab PO TIDWM 04/14/15 05/27/16 04/13/15 History Hydroxychloroquine [Plaquenil] 100 mg PO QDAY 05/27/16 05/27/16 Unknown History fentaNYL [Duragesic 12mcg] 1 each TD Q72HR 05/27/16 05/27/16 Unknown History Active Meds: Active Medications Acetaminophen (Tylenol) 650 mg PO Q4H PRN PRN Reason: Pain MILD(1-3)/Fever >100.5/MAURER Last Admin: 05/28/16 05:53 Dose: 650 mg Bisacodyl (Dulcolax) 10 mg SC QDAY PRN PRN Reason: Constipation unrelieved by MOM Diphenhydramine HCl (Benadryl) 25 mg PO Q6H PRN PRN Reason: Itching Last Admin: 05/28/16 05:53 Dose: 25 mg Enoxaparin Sodium (Lovenox) 30 mg SUB-Q QDAY SHAYLA Last Admin: 05/28/16 10:08 Dose: Not Given Sodium Chloride (Nacl 0.9% 1000 Ml) 1,000 mls @ 100 mls/hr IV DIRECT SHAYLA Sodium Chloride (Nacl 0.9% 1000 Ml) 100 mls @ 999 mls/hr IV ISIDORO PRN PRN Reason: Hypotension Magnesium Hydroxide (Milk Of Magnesia) 30 ml PO Q4H PRN PRN Reason: Constipation Ondansetron HCl (Zofran) 4 mg IV Q8H PRN PRN Reason: N/V unrelieved by Reglan Review of Systems All systems: negative Constitutional: no weight loss, no weight gain, no fever, no chills Ears, nose, mouth and throat: no ear pain, no ear discharge Cardiovascular: palpitations, no chest pain, no orthopnea Respiratory: no cough Gastrointestinal: no abdominal pain, no nausea, no vomiting Genitourinary Female: no pelvic pain, no flank pain, no dysuria, no urinary frequency Musculoskeletal: no neck stiffness, no neck pain Integumentary: no rash, no pruritis Neurological: no weakness, no parathesias Psychiatric: no anxiety, no memory loss Endocrine: no cold intolerance, no heat intolerance Exam - Vital Signs Vital signs: Vital Signs Temp Pulse BP Pulse Ox 98.3 F 130 H 143/111 98 05/27/16 12:14 05/27/16 12:14 05/27/16 12:14 05/27/16 12:14 - General Appearance General appearance: well-developed, well-nourished, appears stated age EENT: PERRL, mucous membranes moist Neck: Present: neck supple, trachea midline. Absent: JVD/HJR, Masses Respiratory: Decreased Breath Sounds Heart: regular, normal heart rate, S1S2, no murmurs Gastrointestinal: Present: normoactive bowel sounds. Absent: tenderness Integumentary: no rash, warm and dry Neurologic: no focal deficit, alert and oriented x3, gait normal, strength 5/5 Musculoskeletal: Absent: deformities, joint swelling Psychiatric: mood/affect appropriate, cooperative Results - Lab Results 05/28/16 04:54 05/28/16 04:54 Most recent lab results Calcium 9.1 mg/dL (8.4-10.2) 05/28/16 04:54 Assessment and Plan 1. ESRD on home HD 2. Hypotension/tachycardia 3. Severe Mitral stenosis 4. SLE 5. Hx of valve replacement Plan: HD today-she does 5 x a week dialysis. She missed her HD on 05/27. BP improved with IVF. IVF D/sebastián now Follow up on cardio recommendations. Pt states that she does not want to be transferred directly if possible to [facility] today as she has a young daughter that she needs to drop to family so that she can be taken care of during her absence. Thank you for the consult
--- NOTE | 2016-05-28 14:45 | Event Note ---
Date: 05/28/16 Repeat TTE confirmed severe mitral stenosis. Patient was offered transfer to [facility] for CT surgery evaluation but she requested to be discharged and to follow up with CT surgery as an outpatient. Follow up appointment with Dr. Allan on , 06/03/16 at 3:00pm, [facility] 6th floor medical office tower.
--- NOTE | 2016-05-28 15:45 | Echocardiography Report ---
Transthoracic Echocardiogram Indication: Mitral Stenosis BP: 81/44 Conclusions *Global left ventricular wall motion and contractility are within normal limits. *The estimated ejection fraction is 50-55%. *The left atrium is moderately dilated. *Flattened in systole consistent with right ventricular pressure overload. *The aortic valve leaflets are mildly thickened. *There is mild aortic regurgitation. *A bio-prosthetic mitral valve is present. *The bio-prosthetic mitral valve appears stenotic. *The peak gradient across the mitral valve is 54 mmHg. *The mean gradient across the mitral valve is 32 mmHg. *There is mild tricuspid regurgitation. *The right ventricular systolic pressure is calculated at 80 mmHg. *There is evidence of severe pulmonary hypertension. *There is mild pulmonic regurgitation. Findings Left Ventricle: The left ventricular chamber size is normal. Global left ventricular wall motion and contractility are within normal limits. Global left ventricular systolic function is normal. The estimated ejection fraction is 50-55%. Left Atrium: The left atrium is moderately dilated. Right Ventricle: The right ventricular cavity size is normal. Flattened in systole consistent with right ventricular pressure overload. Right Atrium: The right atrium appears normal. The interatrial septum appears normal. Aortic Valve: The aortic valve leaflets are mildly thickened. There is mild aortic regurgitation. There is no evidence of aortic stenosis. Mitral Valve: The mean gradient across the mitral valve is 32 mmHg. The peak gradient across the mitral valve is 54 mmHg. A bio-prosthetic mitral valve is present. The bio-prosthetic mitral valve appears stenotic. Tricuspid Valve: The tricuspid valve leaflets are normal. There is mild tricuspid regurgitation. The right ventricular systolic pressure is calculated at 80 mmHg. There is evidence of severe pulmonary hypertension. There is no tricuspid stenosis. Pulmonic Valve: The pulmonic valve appears normal. There is mild pulmonic regurgitation. There is no pulmonic stenosis. Pericardium: There is no pericardial effusion. Aorta: There is no dilatation of the ascending aorta. There is no dilatation of the aortic root. Contrast: Definity was used to optimize study. Measurements Chambers MM Name Value Normal Range Ao root diameter (MM) 2.3 cm (2 - 3.7) LA dimension (AP) MM 4.9 cm (1.9 - 4) LA:Ao ratio (MM) 2.13 ratio - AV cusp separation (MM) 1.4 cm (1.5 - 2.6) Chambers 2D Name Value Normal Range IVSd (2D) 1.07 cm (0.6 - 1.1) LVPWd (2D) 1.01 cm (0.6 - 1.1) IVS:LVPW ratio (2D) 1.06 ratio - LVIDd (2D) 3.47 cm (3.7 - 5.6) LVIDs (2D) 2.54 cm (2 - 3.8) LV FS (Teichholz) (2D) 26.8 % - LV FS (cube) (2D) 26.8 % - EF Teichholz (2D) 53.4 % - LA dimension (AP) 2D 4.9 cm (1.9 - 4) Diastolic/Systolic Function Name Value Normal Range MV E-wave Vmax 2.13 m/sec - MV deceleration time 151 msec - MV A-wave Vmax 2.5 m/sec - MV E:A ratio 0.9 ratio - LV septal e' Vmax 0.03 m/sec - LV lateral e' Vmax 0.04 m/sec - LV E:e' septal ratio 71.7 ratio - LV E:e' lateral ratio 50.7 ratio - Aortic Valve Name Value Normal Range AV VTI 22.9 cm - AV mean gradient 6 mmHg - LVOT diameter 2 cm - LVOT VTI 17.6 cm - LVOT mean gradient 3 mmHg - SV LVOT 55 ml - URIAH (continuity VTI) 2.41 cm2 - Mitral Valve Name Value Normal Range MV Vmax 3.66 m/sec - MV VTI 91.9 cm - MV peak gradient 54 mmHg - MV mean gradient 32 mmHg - MV PHT 77 msec - MVA (PHT) 2.86 cm2 - MVA (continuity VTI) 0.6 cm2 - Tricuspid Valve Name Value Normal Range TR Vmax 4.38 m/sec - TR peak gradient 77 mmHg - RAP 3 mmHg - RVSP 80 mmHg - Pulmonic Valve/Qp:Qs Name Value Normal Range PV Vmax 1.04 m/sec - PV peak gradient 4 mmHg - LA end-diastolic Vmax 2.57 m/sec - PV acceleration time 81 msec -
--- NOTE | 2016-05-28 16:15 | Consultation ---
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 During her hospitalization she was found to have severe restenosis of the mitral valve. Upon discussion with the patient, she reports that she has become severely hypoxic with exertion for the last month. She also notes that in the last month, her home dialysis flow rates have been suboptimal. Prior to this, she did not have any problems with her dialysis at home. Initial ultrasound was performed demonstrating a patent right upper extremity AV fistula with appropriate flow rates. The patient was actively receiving dialysis at time of this consult. Past History Past Medical History: dialysis, ESRD, hypertension, other (lupus, MVR for endocarditis (2013)) Past Surgical History: Other (bioprosthetic MVR for endocarditis (2013), multiple vascular access prodecures, PD catheter placement and removal ) Social history: denies: smoking, alcohol abuse, prescription drug abuse, IV drug use Family history: no significant family history Medications and Allergies Allergies Allergy/AdvReac Type Severity Reaction Status Date / Time Penicillins Allergy Itching Verified 04/14/15 15:34 Home Medications Medication Instructions Recorded Confirmed Last Taken Type Cinacalcet [Sensipar] 30 mg PO QDAY 11/12/14 05/27/16 04/13/15 History Cyclobenzaprine HCl [Flexeril 5 MG 10 mg PO TID 11/12/14 05/27/16 04/13/15 History TAB] Sevelamer Carbonate [Renvela] 4 tab PO TIDWM 04/14/15 05/27/16 04/13/15 History Hydroxychloroquine [Plaquenil] 100 mg PO QDAY 05/27/16 05/27/16 Unknown History fentaNYL [Duragesic 12mcg] 1 each TD Q72HR 05/27/16 05/27/16 Unknown History Active Meds: Active Medications Acetaminophen (Tylenol) 650 mg PO Q4H PRN PRN Reason: Pain MILD(1-3)/Fever >100.5/MAURER Last Admin: 05/28/16 05:53 Dose: 650 mg Bisacodyl (Dulcolax) 10 mg AR QDAY PRN PRN Reason: Constipation unrelieved by MOM Diphenhydramine HCl (Benadryl) 25 mg PO Q6H PRN PRN Reason: Itching Last Admin: 05/28/16 05:53 Dose: 25 mg Enoxaparin Sodium (Lovenox) 30 mg SUB-Q QDAY SHAYLA Last Admin: 05/28/16 10:08 Dose: Not Given Sodium Chloride (Nacl 0.9% 1000 Ml) 1,000 mls @ 100 mls/hr IV DIRECT SHAYLA Sodium Chloride (Nacl 0.9% 1000 Ml) 100 mls @ 999 mls/hr IV ISIDORO PRN PRN Reason: Hypotension Magnesium Hydroxide (Milk Of Magnesia) 30 ml PO Q4H PRN PRN Reason: Constipation Ondansetron HCl (Zofran) 4 mg IV Q8H PRN PRN Reason: N/V unrelieved by Reglan Review of Systems All systems: negative (see HPI) Exam - Constitutional Vitals: Temp Pulse Resp BP Pulse Ox 98.0 F 118 H 20 123/63 100 05/28/16 14:10 05/28/16 16:00 05/28/16 14:10 05/28/16 16:00 05/28/16 08:32 General appearance: Present: no acute distress - EENT Eyes: Present: EOM intact ENT: hearing intact - Respiratory Respiratory effort: normal - Extremities Extremities: normal temperature, normal color, abnormal (actively receiving dialysis, thrill in the right upper extremity AV access) - Psychiatric Psychiatric: appropriate mood/affect, cooperative Results - Labs CBC & Chem 7: 05/28/16 04:54 05/28/16 04:54 Labs: Abnormal lab results 05/27/16 05/28/16 05/28/16 Range/Units 23:45 04:54 04:54 Hct 44.0 H (30.3-42.9) % MCV 107 H (79-97) fl MCH 34 H (28-32) pg RDW 17.7 H (13.2-15.2) % Barron % (Auto) 8.3 H (0.0-7.3) % Barron # 0.9 H (0.0-0.8) K/mm3 Seg Neutrophils % 72.0 H (40.0-70.0) % Seg Neutrophils # 7.8 H (1.8-7.7) K/mm3 Chloride 93.9 L (98-107) mmol/L BUN 50 H (7-17) mg/dL Creatinine 16.0 H (0.7-1.2) mg/dL Troponin T 0.040 H D (0.00-0.029) ng/mL Triglycerides 185 H (2-149) mg/dL 05/28/16 Range/Units 04:54 Hct (30.3-42.9) % MCV (79-97) fl MCH (28-32) pg RDW (13.2-15.2) % Barron % (Auto) (0.0-7.3) % Barron # (0.0-0.8) K/mm3 Seg Neutrophils % (40.0-70.0) % Seg Neutrophils # (1.8-7.7) K/mm3 Chloride (98-107) mmol/L BUN (7-17) mg/dL Creatinine (0.7-1.2) mg/dL Troponin T 0.031 H D (0.00-0.029) ng/mL Triglycerides (2-149) mg/dL Assessment and Plan 36-year-old female with 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 Reviewed patient's fistula ultrasound and I suspect that her decreased home flow rates are probably related to her cardiac issues. Discussed with patient that we agree with cardiology and that she probably requires evaluation of her mitral valve by cardiothoracic surgery at [facility]. The fistula is patent and on ultrasound demonstrates no severe narrowings. Fistula has a thrill even during dialysis. No urgent intervention required at this time. Can consider fistulogram as an outpatient after her evaluation by cardiothoracic surgery at [facility].
--- NOTE | 2016-05-28 16:35 | Discharge Summary ---
Providers - Providers Date of Admission: 05/27/16 22:30 Attending physician: ERVIN VEGA MD 05/28/16 09:30 Consult to Physician [CONS] Routine Consulting Provider: NAEL ANGLIN Reason For Exam: esrd Place consult to:: anthony Notified:: office Was contact made?: Yes If yes, spoke with:: laura Primary care physician: DORR OPERATOR Hospitalization Condition: Stable Hospital course: 1. Palpitations due to severe mitral stenosis, Echo, cardiology consult, monitor on Telemetry 2. ESRD HD per renal 3. SLE continue chronic meds, not in exacerbation 4. Hx of valve replacement continue anti-coagulation Disposition: DISCHARGED TO HOME OR SELFCARE Time spent for discharge: 35 minutes Core Measure Documentation - Palliative Care Palliative Care/ Comfort Measures: Not Applicable - Core Measures Any of the following diagnoses?: none Exam - Constitutional Vitals: Temp Pulse Resp BP Pulse Ox 98.0 F 118 H 20 123/63 100 05/28/16 14:10 05/28/16 16:00 05/28/16 14:10 05/28/16 16:00 05/28/16 08:32 General appearance: Present: no acute distress, well-nourished - EENT Eyes: Present: PERRL ENT: hearing intact, clear oral mucosa - Neck Neck: Present: supple, normal ROM - Respiratory Respiratory effort: normal Respiratory: bilateral: CTA - Cardiovascular Heart Sounds: Present: S1 & S2. Absent: rub, click - Extremities Extremities: pulses symmetrical, No edema Peripheral Pulses: within normal limits - Abdominal General gastrointestinal: Present: soft, non-tender, non-distended, normal bowel sounds Female genitourinary: Present: normal - Integumentary Integumentary: Present: clear, warm, dry - Musculoskeletal Musculoskeletal: gait normal, strength equal bilaterally - Psychiatric Psychiatric: appropriate mood/affect, intact judgment & insight - Neurologic Neurologic: CNII-XII intact, moves all extremities Plan Follow up with: PRIMARY CAREMD [Primary Care Provider] - 3-5 Days
[2016-05-28 18:17] VITALS: BP 116/48
== END 2016-05-28 19:17 | disposition home or self-care (01) | DRG 306 ==
LOC: ED 12:10 → 4A 22:30
PROVIDERS: ADMIT Internal Medicine; ATTEND Internal Medicine
PROC: 5A1D00Z (ICD-10-PCS; principal; 2016-05-28)
DX: I05.0 Rheumatic mitral stenosis (principal); N18.6 End stage renal disease; I12.0 Hypertensive chronic kidney disease with stage 5 chronic kidney disease or end stage renal disease; R00.0 Tachycardia, unspecified; M19.90 Unspecified osteoarthritis, unspecified site; M32.9 Systemic lupus erythematosus, unspecified; I95.9 Hypotension, unspecified; Z99.2 Dependence on renal dialysis; Z79.899 Other long term (current) drug therapy; Z88.0 Allergy status to penicillin; Z95.2 Presence of prosthetic heart valve; Z98.51 Tubal ligation status; Z98.890 Other specified postprocedural states; Z82.49 Family history of ischemic heart disease and other diseases of the circulatory system
CPT/HCPCS: 36415; 71010; 80048; 80053; 80061; 82550; 82553; 84443; 84484; 85025; 85610; 85730; 93005; 93010; 93306; 93990; 96374; J0692; J1650; J3370; J7030; J7040; J7050